=== PATIENT | female | born 1965 | race African-American/Black ===

== ENCOUNTER 2021-04-15 06:00 | Day surgery (SDC) | payer OTHER ==
[2021-04-06 10:42] VITALS: BMI 29.0
[2021-04-15] MEDS ORDERED: BUPIVACAINE HCL/PF 0.25% (2.5MG/ML) 10 ML VIAL ONE ×2 (07:08→07:12)
[2021-04-15] MEDS ORDERED: fentaNYL CITRATE 250 MCG/5 ML VIAL ONE (07:27)
[2021-04-15] MEDS ORDERED: PROPOFOL 20 ML ONE ×2 (07:27)
[2021-04-15] MEDS ORDERED: MIDAZOLAM HCL 2 MG/2 ML SINGLE DOSE VIAL ONE (07:27)
[2021-04-15] MEDS ORDERED: LIDOCAINE HCL/PF 2% SDV 5ML VIAL ONE (07:27)
[2021-04-15] MEDS ORDERED: DEXAMETHASONE SOD PHOSPHATE 4 MG/1 ML VIAL ONE (07:50)
[2021-04-15] MEDS ORDERED: ceFAZolin SODIUM 1 GM VIAL ONE (07:50)
[2021-04-15] MEDS ORDERED: ONDANSETRON 4 MG/2 ML VIAL ONE ×2 (07:50→09:02)
[2021-04-15] MEDS ORDERED: oxyCODONE HCL 5 MG TABLET PO PRN (08:37)
[2021-04-15] MEDS ORDERED: IBUPROFEN 800 MG/8 ML IJ IVPB PRN (08:37)
[2021-04-15] MEDS ORDERED: ONDANSETRON 4 MG/2 ML VIAL IVPUSH PRN (08:37)
[2021-04-15] MEDS ORDERED: ACETAMINOPHEN 1000 MG/100 ML VIAL (NON FORMULARY) IVPB PRN (08:38)
[2021-04-15] MEDS ORDERED: IBUPROFEN 800 MG/8 ML IJ IVPB ONE (08:40)
[2021-04-15] MEDS ORDERED: ACETAMINOPHEN INJECTION 100 ML IVPB ONE (08:41)
[2021-04-15] MEDS ORDERED: LACTATED RINGERS SOLUTION 1,000 ML IV SCH (08:45)
[2021-04-15 09:47] VITALS: TEMP 97.8
[2021-04-15 10:41] VITALS: BP 116/70; PULSE 69
== END 2021-04-15 10:41 | disposition home or self-care (01) ==
LOC: FASU 06:00
PROVIDERS: ATTEND Orthopaedic Surgery Sports Medicine
PROC: 0SBC4ZZ Excision of Right Knee Joint, Percutaneous Endoscopic Approach (ICD-10-PCS; principal; 2021-04-15 08:00)
PROC: 0SBC4ZZ Excision of Right Knee Joint, Percutaneous Endoscopic Approach (ICD-10-PCS; 2021-04-15 08:00)
DX: S83.241A Other tear of medial meniscus, current injury, right knee, initial encounter (principal); M94.261 Chondromalacia, right knee; M65.9 Synovitis and tenosynovitis, unspecified; X58.XXXA Exposure to other specified factors, initial encounter; Y93.9 Activity, unspecified; Y92.9 Unspecified place or not applicable
CPT/HCPCS: 88304-TC; 94760; 97116-GP; J0131

== ENCOUNTER → 2022-02-24 | Day surgery (SDC) | payer OTHER | END | disposition home or self-care (01) | LOC: FMAMMOTONE 10:05 | PROVIDERS: ATTEND Nurse Practitioner Family | PROC: 0HBT3ZX Excision of Right Breast, Percutaneous Approach, Diagnostic (ICD-10-PCS; principal; 2022-02-24) | DX: D05.01 Lobular carcinoma in situ of right breast (principal); N60.11 Diffuse cystic mastopathy of right breast; N60.31 Fibrosclerosis of right breast; N64.89 Other specified disorders of breast; N62 Hypertrophy of breast; R92.1 Mammographic calcification found on diagnostic imaging of breast | CPT/HCPCS: 19081; 76098-TC-FY; 88305-TC ==